=== PATIENT | female | born 1980 | race Caucasian/White ===

== ENCOUNTER 2022-07-17 20:12 | Emergency (ER) | payer OTHER ==
[~2022-07-17] VITALS: Ht 149.9 cm; Wt 58.1 kg
[2022-07-17 20:29] VITALS: BP 120/94
--- NOTE | 2022-07-17 20:35 | NUR ---
TO LOBBY FOLLOWING TRIAGE
--- NOTE | 2022-07-17 21:22 | NUR ---
PER ER ADMITTING, PT LWBS @ [phone].
--- NOTE | 2022-07-17 21:58 | NUR ---
PT CAME TO REGISTRATION WINDOW AND SAID SHE WAS LEAVING. PT LWBS
== END 2022-07-17 21:22 | disposition left against medical advice (07) ==
LOC: MED 20:12
DX: M79.672 Pain in left foot (principal); M79.671 Pain in right foot; Z53.21 Procedure and treatment not carried out due to patient leaving prior to being seen by health care provider